=== PATIENT | male | born 1995 | race African-American/Black ===

== ENCOUNTER 2017-11-08 06:58 | Observation (INO) | payer OTHER ==
[2017-11-07 10:33] VITALS: BMI 27.7
[2017-11-08] MEDS ORDERED: Fentanyl 100 MCG/2 ML VIAL ONE ×2 (07:59→11:02)
[2017-11-08] MEDS ORDERED: Midazolam HCl 2 mg/2 ml Vial ONE (07:59)
[2017-11-08] MEDS ORDERED: CEFAZOLIN/Water 2 GM/20 ML SYRINGE ONE (08:03)
[2017-11-08] MEDS ORDERED: Meperidine HCl/PF 25 MG/ML VIAL ONE (10:34)
--- NOTE | 2017-11-08 10:45 | OP ---
DATE OF PROCEDURE: 11/08/2017 PREOPERATIVE DIAGNOSIS: Left knee anterior cruciate ligament tear and lateral meniscus tear. POSTOPERATIVE DIAGNOSES: 1. Left knee anterior cruciate ligament tear and lateral meniscus tear. 2. There were some grade 2 changes noted on the medial femoral condyle. PROCEDURES: 1. Left knee exam under anesthesia. 2. Left knee arthroscopy with arthroscopically assisted ACL reconstruction using autologous patellar tendon graft. 3. Partial lateral meniscectomy. SURGEON: Jose Richard M.D. CELL TUBER MACHINE: Evgeny Foley. ANESTHESIA: Had a general anesthetic. He also had a preoperative block. BLOOD LOSS: Minimal. COMPLICATIONS: None. IMPLANTS: A 7 x 25 metal interference screw on the femur, a bicortical screw and washer on the tibia . These were [employer] devices. DISPOSITION: He did go to recovery room in stable condition. INDICATIONS: Rashard is a 21-year-old healthy male who was playing football and injured his left knee. MRI confirmed an ACL tear as well as lateral meniscus tear and at this time he is presenting for inman rgery and reconstruction of the knee. DESCRIPTION OF PROCEDURE: After all appropriate consent forms were explained and signed, he was take n back to the operating room and at this time was given general anesthetic. Once the level of anesth esia was appropriate, the tourniquet was placed on the left thigh and leg was then prepped and draped in the standard surgical fashion. The limb was then exsanguinated and the tourniquet was taken to 3 00 mmHg. Midline incision was made with a 10 blade down through skin. Bovie was used to coagulate a ny brisk venous bleeding. New blade was used to take the paratenon off the underlying patellar tendo n. Central third patellar tendon graft was then harvested in standard fashion using a double 10 blad e saw and osteotome. This was taken to the back table and made so the femoral side was 9, tibial danie e was 10. At this time, we loosely closed our graft site using multiple interrupted Vicryls. Infero lateral portal was then established and scope was placed into the knee joint. Needle localization te chnique was then used to make a medial working portal. Diagnostic arthroscopy commenced in the notch , the ACL was found to be torn. The PCL was intact. Patellofemoral joint was in excellent condition . No loose bodies were noted in the gutter. The medial compartment showed some grade II changes on the medial femoral condyle with no loose chondral flaps. Medial meniscus was intact. The lateral co mpartment showed the femur and tibia to be in good condition. There was a tear which was although te ar, front portion of the lateral meniscus just off the root had torn off and the little nubbin of thi s was taken straight up at a 90 degree angle and was hard as this injury occurred in the springtime. Fortunately, all remaining lateral meniscus was intact. Therefore, the shaver was introduced just t o remove this small piece of tissue, so would not get stuck anymore. At this time, we then performed our notchplasty using the shaheen and shaver in standard fashion. We then flexed the knee up and throu the medial portal and [id number] guide was used to place a pin up and out the anterolateral thig h. Reamer was then used to ream our tunnel to a depth of 30. Once this was removed, all loose bony cartilaginous debris was removed from the knee joint. We then placed our tibial guide in the knee se t at 52-1/2 degrees and placed the pin up into the knee joint. A 10 mm acorn reamer was used to ream our tunnel. Again, all loose bony cartilaginous debris was removed from the knee joint. We then we nt dry, flexed our knee up one more time and passed the pin up and out the anterolateral thigh and us ed this to pull our passing suture into the knee joint. This was used to pull our graft up into the knee and we then used a 7 x 25 metal interference screw to fixate our femoral plug. We then drilled, tapped and placed a bicortical screw with a smooth washer and used this to tie our strings on this a s post. This was done with the knee in full extension. Once this was tied, the knee was taken throu full range of motion including his 7-8 degrees of hyperextension and full flexion. The graft was noted to not impinge through this full range of motion. Once this was done, scope was removed, knee was drained. We then went ahead and bone grafted our patellar and tibial defect sites. We ran a Bulmaro ryl to close our paratenon, 2-0 Vicryl and surgical ignacio were used on skin. Bulky sterile dressin g was applied. Tourniquet was let down. Toes pinked up nicely. The patient was awakened. He was t aken to the recovery room in stable condition. All counts were correct at the end of the case. He d id receive preoperative IV antibiotics.
[2017-11-08] MEDS ORDERED: Ondansetron HCl/PF 4 MG/2 ML Vial IVP PRN (13:04)
[2017-11-08] MEDS ORDERED: Morphine 4 MG/ML VIAL SLOW IVP PRN (13:04)
[2017-11-08] MEDS ORDERED: Bisacodyl 10 MG SUPP PR PRN (13:04)
[2017-11-08] MEDS ORDERED: traMADol HCl 50 MG TAB PO PRN (13:04)
[2017-11-08] MEDS ORDERED: Methocarbamol 500 MG TAB PO PRN (13:04)
[2017-11-08] MEDS ORDERED: diphenhydrAMINE 50 MG CAP PO PRN (13:04)
[2017-11-08] MEDS ORDERED: Acetaminophen 500 MG TAB PO PRN (13:04)
[2017-11-08] MEDS ORDERED: HYDROcodone/Acetaminophen 7.5/325 mg Tablet PO PRN (13:04)
[2017-11-08] MEDS ORDERED: Milk Of Magnesia 30 ML UDCUP PO PRN (13:04)
[2017-11-08] MEDS ORDERED: Bupivacaine HCl 0.5%/Epinephrine 1:200,000/PF 30 ml Vial ONE (14:39)
[2017-11-08] MEDS ORDERED: Ondansetron HCl/PF 4 MG/2 ML Vial ONE (14:50)
[2017-11-08] MEDS ORDERED: Lidocaine 1% PF 5 ML VIAL ONE (14:50)
[2017-11-08] MEDS ORDERED: PROPOFOL 200 MG/20 ML VIAL ONE (14:50)
[2017-11-08] MEDS ORDERED: Ketorolac Tromethamine 30 MG/ML VIAL ONE (14:50)
[2017-11-08] MEDS: CEFAZOLIN/Water 2 GM/20 ML SYRINGE SLOW IVP SCH ×2 (15:21→23:13)
[2017-11-08] MEDS: HYDROcodone/Acetaminophen 7.5/325 mg Tablet PO PRN ×2 (15:22→23:14)
[2017-11-08] MEDS: Ketorolac Tromethamine 30 MG/ML VIAL IVP SCH ×2 (18:31→23:13)
[2017-11-08] MEDS: Dextrose 5 %-0.45 % NaCl 1,000 ML IV SCH ×2 (18:34→23:11)
[2017-11-08] MEDS: Famotidine 20 MG TAB PO SCH (21:02)
[2017-11-09 03:40] VITALS: TEMP 98.3
[2017-11-09] MEDS: HYDROcodone/Acetaminophen 7.5/325 mg Tablet PO PRN ×2 (06:23→11:12)
[2017-11-09] MEDS: Ketorolac Tromethamine 30 MG/ML VIAL IVP SCH (06:23)
[2017-11-09 07:10] VITALS: BP 139/73
[2017-11-09] MEDS: Famotidine 20 MG TAB PO SCH (07:48)
== END 2017-11-09 12:45 | disposition home or self-care (01) ==
LOC: SDC 06:58 → SURG A 11:57
PROVIDERS: ADMIT Orthopaedic Surgery; ATTEND Orthopaedic Surgery
PROC: 0MRP47Z Replacement of Left Knee Bursa and Ligament with Autologous Tissue Substitute, Percutaneous Endoscopic Approach (ICD-10-PCS; principal; 2017-11-08)
PROC: 0SBD4ZZ Excision of Left Knee Joint, Percutaneous Endoscopic Approach (ICD-10-PCS; 2017-11-08)
DX: S83.512A Sprain of anterior cruciate ligament of left knee, initial encounter (principal); S83.282A Other tear of lateral meniscus, current injury, left knee, initial encounter; Y93.61 Activity, american tackle football
CPT/HCPCS: 96374; 96375; 96376; C1713; G0378; G8978-GP-CI; G8979-GP-CI; G8980-GP-CI; J0670; J1885; J2001; J2175; J2250; J2405; J2704; J3010